=== PATIENT | male | born 1955 | race Caucasian/White ===

== ENCOUNTER 2020-08-04 07:25 | Emergency (ER) | payer MEDICARE, MEDICAID ==
[~2020-08-04] VITALS: Ht 188 cm; Wt 81.8 kg
[2020-08-04] MEDS ORDERED: MOTRIN400 MG PO (09:28)
[2020-08-04 09:39] VITALS: BP 173/88
== END 2020-08-04 09:50 | disposition home or self-care (01) ==
LOC: ED 07:25
PROC: 2W3CX1Z Immobilization of Right Lower Arm using Splint (ICD-10-PCS; principal; 2020-08-04)
DX: S63.91XA Sprain of unspecified part of right wrist and hand, initial encounter (principal); I10 Essential (primary) hypertension; W19.XXXA Unspecified fall, initial encounter; Y92.000 Kitchen of unspecified non-institutional (private) residence as the place of occurrence of the external cause

== ENCOUNTER 2022-04-10 11:58 | Emergency (ER) | payer MEDICARE, MEDICAID ==
[~2022-04-10] VITALS: Ht 188 cm; Wt 201.0 kg
[~2022-04-10 11:58] MED LIST: MOTRIN400 MG PO
[2022-04-10] MEDS ORDERED: NAPROXEN500 MG PO (13:24)
[2022-04-10] MEDS ORDERED: TRAMADOL HCL50 MG PO (13:24)
[2022-04-10 13:30] VITALS: BP 156/93
== END 2022-04-10 13:30 | disposition home or self-care (01) ==
LOC: ED 11:58
DX: S63.502A Unspecified sprain of left wrist, initial encounter (principal); I10 Essential (primary) hypertension; X50.0XXA Overexertion from strenuous movement or load, initial encounter; Y93.89 Activity, other specified

== ENCOUNTER 2023-04-03 10:16 | Emergency (ER) | payer MEDICARE, MEDICAID ==
[~2023-04-03] VITALS: Ht 188 cm; Wt 83.9 kg
[~2023-04-03 10:16] MED LIST changes: +NAPROXEN500 MG PO; +TRAMADOL HCL50 MG PO
[2023-04-03] MEDS ORDERED: NAPROXEN500 MG PO (13:36)
[2023-04-03] MEDS ORDERED: PREDNISONE20 MG PO (13:36)
[2023-04-03 13:43] VITALS: BP 143/79
== END 2023-04-03 13:58 | disposition home or self-care (01) ==
LOC: ED 10:16
DX: M10.061 Idiopathic gout, right knee (principal); I10 Essential (primary) hypertension